=== PATIENT | male | born 1960 | race Caucasian/White ===

== ENCOUNTER → 2017-11-30 | Outpatient (CLI) | payer BC ==
--- NOTE | 2017-11-30 09:55 | FL ---
ESOPHOGRAM. HISTORY: Dysphagia Esophagram was performed per the air contrast technique. The patient swallowed barium and effervesce nt crystals without difficulty or delay. Esophageal peristalsis and motility appear to be within normal limits. There is no evidence for filling defect, mass or diverticulum. Distal esophageal folds are mildly pr ominent. This may reflect esophagitis. Small hiatal hernia reducible. Subsequently single contrast cervical esophagram was performed which fails demonstrate evidence for a spiration penetration or mass. Mild extrinsic mass effect from left to right. IMPRESSION: 1. Mild esophagitis suggested. 2. Small sliding-type hiatal hernia is reducible. 3. Cervical esophagus demonstrates mild [id number] extrinsic mass effect.
--- NOTE | 2017-11-30 12:38 | US ---
EXAMINATION TYPE: US thyroid st tissue head/neck DATE OF EXAM: 11/30/2017 COMPARISON: NONE CLINICAL HISTORY: R13.10 Dysphagia E01.0 Thyroidomegaly. Generalized not feeling well, trouble swallo wing GLAND SIZE: Right Lobe: 6.9 x 2.5 x 2.0 cm Overall Parenchyma: heterogenous Left Lobe: 5.8 x 2.4 x 2.1 cm Overall Parenchyma: heterogeneous Isthmus Thickness: 1.3 cm NODULES RIGHT: # of nodules measured on right: 0 LEFT: # of nodules measured on left: 0 ISTHMUS: # of nodules measured in the isthmus: 0 Bilateral neck scanned, no evidence of lymphadenopathy. Grossly heterogeneous and enlarged thyroid bilaterally. IMPRESSION: Thyromegaly
[2017-11-30 16:24] LABS: Thyroid Peroxidase Antibodies >13000.0 U/mL (0.0-59.9)
== END | disposition home or self-care (01) ==
LOC: RADUSMAIN 08:01
PROVIDERS: ATTEND Otolaryngology
DX: K44.9 Diaphragmatic hernia without obstruction or gangrene (principal); K22.8 Other specified diseases of esophagus; E01.0 Iodine-deficiency related diffuse (endemic) goiter; R53.83 Other fatigue
CPT/HCPCS: 36415; 74220; 76536; 84443; 86376; 86800

== ENCOUNTER 2018-09-23 08:40 | Inpatient (IN) | payer BC ==
[2018-09-23] MEDS ORDERED: SODIUM CHLORIDE 0.9% 1,000 ML IV ONE (08:59)
[2018-09-23 09:01] LABS: Basophils # (A) 0.1 k/uL (0-0.2); Basophils % (A) 1 %; Eosinophils # (A) 0.3 k/uL (0-0.7); Eosinophils % (A) 3 %; HCT 46.1 % (39.0-53.0); Lymphocytes # (A) 2.5 k/uL (1.0-4.8); Lymphocytes % (A) 26 %; MCH 28.8 pg (25.0-35.0); MCHC 32.6 g/dL (31.0-37.0); MCV 88.4 fL (80.0-100.0); Mean Platelet Volume 7.6; Monocytes # (A) 0.7 k/uL (0-1.0); Monocytes % (A) 7 %; Neutrophils # (A) 5.9 k/uL (1.3-7.7); Neutrophils % (A) 61 %; Platelet Count 298 k/uL (150-450); RBC 5.21 m/uL (4.30-5.90); RDW 13.5 % (11.5-15.5); WBC 9.7 k/uL (3.8-10.6)
[2018-09-23] MEDS ORDERED: fentaNYL (PF) 50 MCG/ML 2 ML AMP IVP ONE (09:09)
--- NOTE | 2018-09-23 09:09 | XR ---
EXAMINATION TYPE: XR chest 1V portable DATE OF EXAM: 09/23/2018 COMPARISON: NONE HISTORY: Chest pain TECHNIQUE: Single frontal view of the chest is obtained. FINDINGS: There is no focal air space opacity, pleural effusion, or pneumothorax seen. The cardiac silhouette size is upper limits of normal. The osseous structures are intact. IMPRESSION: Upper limits of normal size of the cardiomediastinal silhouette, otherwise unremarkable exam.
[2018-09-23 09:10] LABS: ALT 42 U/L (21-72); AST 25 U/L (17-59); Albumin 4.2 g/dL (3.5-5.0); Alkaline Phosphatase 85 U/L (38-126); Anion Gap 9 mmol/L; Blood Urea Nitrogen 25 mg/dL (9-20); Calcium 9.7 mg/dL (8.4-10.2); Carbon Dioxide 21 mmol/L (22-30); Chloride 108 mmol/L (98-107); Glucose 174 mg/dL (74-99); Potassium 4.2 mmol/L (3.5-5.1); Sodium 138 mmol/L (137-145); Total Bilirubin 0.7 mg/dL (0.2-1.3); Total Protein 7.2 g/dL (6.3-8.2)
[2018-09-23] MEDS ORDERED: LIDOCAINE 1% INJ 10MG/ML (20 ML MDV) SQ ONE ×2 (09:12→09:20)
[2018-09-23] MEDS ORDERED: MIDAZOLAM 2 MG/2 ML VIAL IVP ONE (09:15)
[2018-09-23 09:17] LABS: Prothrombin Time 11.1 sec (9.0-12.0)
--- NOTE | 2018-09-23 09:21 | CONS ---
CONSULTATION Mr. Goff is a 58-year-old male with known history of hypertension, history of chronic tobacco use, who presented with symptoms of chest discomfort that started today on and off and persistent. He was not feeling well. The discomfort was radiating to his arm and to his back. In view of that, he came into the emergency room and was noted to have ST-segment elevation inferiorly consistent with an inferior wall myocardial infarction. According to the patient, he had no prior cardiac history. His activity level is stable. He has no peripheral edema. No dizziness. No palpitation. No syncope. He denies any history of PND, orthopnea, or peripheral edema. His coronary risk factors are positive for hypertension and hyperlipidemia. He is a nondiabetic. His lipid profile is not available. REVIEW OF SYSTEMS: RESPIRATORY SYSTEM: He denies any recent wheezing or cough. No history of obstructive lung disease. GI SYSTEM: No recent GI bleed. No peptic ulcer disease. SYSTEM: No dysuria or hematuria. NERVOUS SYSTEM: No history of stroke or seizure. SOCIAL HISTORY: He drinks caffeine on a regular basis. Smokes about a pack a day. Social alcohol intake. PHYSICAL EXAMINATION: This is a 58-year-old male, alert, oriented, in no apparent distress. Blood pressure 120/70 with the heart rate in the 60's. HEAD: Normocephalic. EYES: Sclerae anicteric. NECK: Good upstroke. No bruit. No jugular venous distention. LUNGS: With decreased air exchange bilaterally. No wheezes. HEART: Regular rate and rhythm. S1, S2. No S3. No rub or gallop. ABDOMEN: Soft, obese, nontender. Positive bowel sounds. No megaly. EXTREMITIES: No edema. +1 dorsalis pedis. EKG revealed sinus mechanism with a rate of 57, ST-segment elevation in leads II, III, aVF with ST-segment depression in V1 and V2 and one aVL with T-wave inversion. IMPRESSION: 1. Acute inferolateral myocardial infarction. 2. Chronic tobacco use. 3. Hypertension. RECOMMENDATION: I am recommending to proceed with coronary angiography to assess his status and guide his treatment. The rationale behind the procedure as well as the risks and the complications were discussed with the patient who is in full understanding and agreement. Thank you for this consult. We will follow with you. MMODL / IJN: [id number] /
[2018-09-23] MEDS ORDERED: TICAGRELOR 90 MG TAB PO ONE (09:25)
[2018-09-23] MEDS ORDERED: BIVALIRUDIN 250 MG VIAL IV ONE (09:26)
[2018-09-23] MEDS ORDERED: BIVALIRUDIN 250 MG in SODIUM CHLORIDE 0.9% 50 ML IV ONE ×2 (09:26→09:51)
[2018-09-23 09:29] LABS: Partial Thromboplastin Time 21.6 sec (22.0-30.0)
--- NOTE | 2018-09-23 09:33 | ED ---
General Adult HPI - General Chief complaint: Chest Pain Stated complaint: chest pain Source: patient, EMS Mode of arrival: EMS Limitations: no limitations - History of Present Illness Initial comments: Dictation was produced using [employer] dictation software. please excuse any grammatical, word or spelling errors. Chief Complaint: 58-year-old male brought in by EMS for back pain and left upper extremity numbness History of Present Illness: She is a 58-year-old male brought in by EMS for chest pain. Patient states he woke up feeling well this morning. While he was at work began feeling some chest pressure. He didn't think much of it went to work. Patient was doing some form of exertional activity when his symptoms began getting worse. EMS was called. 911 answering service informed them that he may be having a heart attack. They instructed them to give patient aspirin. EMS performed a prehospital EKG showing inferior wall ME with Versed with changes in the high lateral leads. Patient has any history of cardiac disease. Patient is a smoker. Drugs occasionally. Denies any other risk factors. The ROS documented in this emergency department record has been reviewed and confirmed by me. Those systems with pertinent positive or negative responses have been documented in the HPI. All other systems are other negative and/or noncontributory. PHYSICAL EXAM: General Impression: Alert and oriented x3, not in acute distress HEENT: Normocephalic atraumatic, extra-ocular movements intact, pupils equal and reactive to light bilaterally, mucous membranes moist. Cardiovascular: Heart regular rate and rhythm, S1&S2 audible, no murmurs, rubs or gallops Chest: Lungs clear to auscultation bilaterally, no rhonchi, no wheeze, no rales Abdomen: Bowel sounds present, abdomen soft, non-tender, non-distended, no organomegaly Musculoskeletal: Pulses present and equal in all extremities, no peripheral edema Motor: Power 5/5 bilaterally, no focal deficits noted Neurological: CN II-XII grossly intact, no focal motor or sensory deficits noted Skin: Intact with no visualized rashes Psych: Normal affect and mood ED course: 58 yo male with concerns for myocardial infarction. As upon arrival are within acceptable limits. Prehospital EKG was reviewed by myself showing findings concerning for ST segment elevation ME and inferior leads. Repeat EKG was performed here in emergency department for a prehospital EKG findings. Junior Buyer was activated. Patient given 4000 units of heparin. Patient given aspirin. Discussed patient case with Dr. 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 EKG interpretation: Ventricular rate 57, sinus bradycardia,. 166, QS 112, QTc 432. No IN prolongation, no QTC prolongation, EKG consistent with STEMI - Related Data Home Medications Medication Instructions Recorded Confirmed Levothyroxine Sodium [Synthroid] 200 mcg PO QAM 09/23/18 09/23/18 Varenicline Tartrate [Chantix 2 mg PO HS 09/23/18 09/23/18 Continuing Pack] amLODIPine BESYLATE 10 mg PO QAM 09/23/18 09/23/18 Allergies Allergy/AdvReac Type Severity Reaction Status Date / Time No Known Allergies Allergy Unverified 09/23/18 09:00 Review of Systems ROS Statement: Those systems with pertinent positive or pertinent negative responses have been documented in the HPI. ROS Other: All systems not noted in ROS Statement are negative. Past Medical History Past Medical History: Hypertension, Thyroid Disorder History of Any Multi-Drug Resistant Organisms: None Reported Additional Past Surgical History / Comment(s): bicep tendon, broken ankle Past Psychological History: No Psychological Hx Reported Smoking Status: Current every day smoker Past Alcohol Use History: Occasional Past Drug Use History: None Reported General Exam Limitations: no limitations Course Vital Signs 09/23/18 09/23/18 09/23/18 08:43 08:53 09:17 Temperature 97.7 F Pulse Rate 63 59 L Pulse Rate [ 59 L Bilateral Dorsalis Pedis] Respiratory 18 18 Rate Blood Pressure 102/76 141/119 O2 Sat by Pulse 96 Oximetry Procedures - [place] Protocol (Time Out) Patient Identification (2 identifiers required): Arm Band, 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, Procedure, Consent Site Marked: Not Applicable Medical Decision Making - Lab Data Result diagrams: 09/23/18 08:45 09/23/18 08:45 Lab Results 09/23/18 09/23/18 09/23/18 Range/Units 08:45 08:45 08:45 WBC (3.8-10.6) k/uL RBC (4.30-5.90) m/uL Hgb (13.0-17.5) gm/dL Hct (39.0-53.0) % MCV (80.0-100.0) fL MCH (25.0-35.0) pg MCHC (31.0-37.0) g/dL RDW (11.5-15.5) % Plt Count (150-450) k/uL Neutrophils % % Lymphocytes % % Monocytes % % Eosinophils % % Basophils % % Neutrophils # (1.3-7.7) k/uL Lymphocytes # (1.0-4.8) k/uL Monocytes # (0-1.0) k/uL Eosinophils # (0-0.7) k/uL Basophils # (0-0.2) k/uL PT 11.1 (9.0-12.0) sec INR 1.0 (<1.2) APTT 21.6 L (22.0-30.0) sec Sodium 138 (137-145) mmol/L Potassium 4.2 (3.5-5.1) mmol/L Chloride 108 H (98-107) mmol/L Carbon Dioxide 21 L (22-30) mmol/L Anion Gap 9 mmol/L BUN 25 H (9-20) mg/dL Creatinine 0.87 (0.66-1.25) mg/dL Est GFR (CKD-EPI)AfAm >90 (>60 ml/min/1.73 sqM) Est GFR (CKD-EPI)NonAf >90 (>60 ml/min/1.73 sqM) Glucose 174 H (74-99) mg/dL Calcium 9.7 (8.4-10.2) mg/dL Total Bilirubin 0.7 (0.2-1.3) mg/dL AST 25 (17-59) U/L ALT 42 (21-72) U/L Alkaline Phosphatase 85 (38-126) U/L Total Creatine Kinase 209 H (55-170) U/L Total Protein 7.2 (6.3-8.2) g/dL Albumin 4.2 (3.5-5.0) g/dL 09/23/18 Range/Units 08:45 WBC 9.7 (3.8-10.6) k/uL RBC 5.21 (4.30-5.90) m/uL Hgb 15.0 (13.0-17.5) gm/dL Hct 46.1 (39.0-53.0) % MCV 88.4 (80.0-100.0) fL MCH 28.8 (25.0-35.0) pg MCHC 32.6 (31.0-37.0) g/dL RDW 13.5 (11.5-15.5) % Plt Count 298 (150-450) k/uL Neutrophils % 61 % Lymphocytes % 26 % Monocytes % 7 % Eosinophils % 3 % Basophils % 1 % Neutrophils # 5.9 (1.3-7.7) k/uL Lymphocytes # 2.5 (1.0-4.8) k/uL Monocytes # 0.7 (0-1.0) k/uL Eosinophils # 0.3 (0-0.7) k/uL Basophils # 0.1 (0-0.2) k/uL PT (9.0-12.0) sec INR (<1.2) APTT (22.0-30.0) sec Sodium (137-145) mmol/L Potassium (3.5-5.1) mmol/L Chloride (98-107) mmol/L Carbon Dioxide (22-30) mmol/L Anion Gap mmol/L BUN (9-20) mg/dL Creatinine (0.66-1.25) mg/dL Est GFR (CKD-EPI)AfAm (>60 ml/min/1.73 sqM) Est GFR (CKD-EPI)NonAf (>60 ml/min/1.73 sqM) Glucose (74-99) mg/dL Calcium (8.4-10.2) mg/dL Total Bilirubin (0.2-1.3) mg/dL AST (17-59) U/L ALT (21-72) U/L Alkaline Phosphatase (38-126) U/L Total Creatine Kinase (55-170) U/L Total Protein (6.3-8.2) g/dL Albumin (3.5-5.0) g/dL Disposition Clinical Impression: ST elevation myocardial infarction (STEMI) Disposition: ADMITTED IP TO THIS HOSP Condition: Critical Referrals: Cheko Knox MD [Primary Care Provider] - 1-2 days Decision Time: 09:33
[2018-09-23 09:34] LABS: Creatine Kinase MB 1.7 ng/mL (0.0-2.4)
[2018-09-23] MEDS ORDERED: IOPAMIDOL-370 125ML BTL INJ ONE (09:46)
[2018-09-23 09:47] LABS: Troponin I 0.092 ng/mL (0.000-0.034)
[2018-09-23] MEDS ORDERED: METOPROLOL TARTRATE 5 MG/5 ML VIAL IVP ONE (09:51)
[2018-09-23] MEDS ORDERED: IOPAMIDOL-370 50ML BTL INJ ONE ×2 (10:01→10:02)
[2018-09-23] MEDS ORDERED: NALOXONE 0.4 MG/ML 1 ML VIAL IV PRN (10:12)
[2018-09-23] MEDS ORDERED: NITROGLYCERIN SL TABS 0.4 MG TAB SUBLINGUAL PRN (10:20)
[2018-09-23] MEDS ORDERED: ZOLPIDEM 5 MG TAB PO PRN (10:20)
[2018-09-23] MEDS ORDERED: MAG HYDROX/AL HYDROX/SIMETH 30 ML CUP PO PRN (10:20)
[2018-09-23] MEDS ORDERED: RX INFO: IV CONTRAST WAS GIVEN 1 EACH MISC MISCELLANE PRN (10:20)
[2018-09-23] MEDS ORDERED: ATROPINE SULFATE 0.1 MG/ML 10ML SYRINGE IV PRN (10:20)
[2018-09-23 10:26] LABS: Glucose,Whole Blood 136 mg/dL (75-99)
[2018-09-23] MEDS ORDERED: SODIUM CHLORIDE 0.9% 1,000 ML IV SCH (10:30)
--- NOTE | 2018-09-23 10:39 | CC ---
CARDIAC CATHETERIZATION REPORT Mr. Goff is a 58-year-old male with a known history of hypertension, chronic tobacco use, who presented with symptoms of chest discomfort and evidence of acute inferior wall myocardial infarction. In view of that, recommendation made regarding cardiac catheterization. The procedures, risks and complication were discussed with the patient who is in full understanding and agreement. 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 Using Xylocaine anesthesia, attempts to cannulate the radial artery were unsuccessful because of a vasospastic response at that time. Using Xylocaine anesthesia and Seldinger technique, a 6-Chinese sheath was introduced in the right femoral artery. Selective right coronary angiography was performed using 6-Chinese FR4 guiding catheter after obtaining images and performing stenting of the right coronary artery, images of the left coronary system was used using 6-Chinese 4 bend left Georgina catheter. Images of the coronary arteries were obtained. Following that, a 6-Chinese tight pigtail catheter was introduced in the left ventricle and a 30 degree DEVLIN view of the left ventricle was obtained. Following that, catheter and sheath were removed. Hemostasis was obtained with deployment of Angio-Seal. There was no immediate complication. Patient is returned to his room in stable condition. FINDINGS: LEFT MAIN: This is a short-size vessel bifurcating into left circumflex, left anterior descending artery. Left main coronary artery has no evidence of obstructive coronary artery disease. LEFT ANTERIOR DESCENDING ARTERY: This vessel gives rise to diagonal branch, following the diagonal branch the LAD tapers down, does not reach the apex. The LAD after the diagonal branch has a 40% plaque. The rest of the vessel has mild intimal disease without any evidence of high-grade stenosis. LEFT CIRCUMFLEX: This is a nondominant vessel, large in caliber giving rise to 2 obtuse marginal branch. The left circumflex first obtuse marginal branch has a 20% to 30% plaque. The rest of the vessel has no high-grade stenosis. RIGHT CORONARY ARTERY: This is a large ectatic vessel, totally occluded in the mid distal segment with no antegrade flow. LEFT VENTRICULOGRAM: Left ventriculogram was performed in 30 degree DEVLIN view and revealed mild inferior wall hypokinesis. There was no significant mitral regurgitation. Ejection fraction 45% to 50%. HEMODYNAMICS: There was no gradient across the aortic valve. The left ventricle end-diastolic pressure was 24-26 mmHg. CONCLUSION: 1. Totally occluded right coronary artery in the mid distal segment. 2. Mild to moderate disease in the circumflex and the LAD. 3. Mildly impaired left ventricular systolic function. RECOMMENDATION: In view of finding anatomy, I recommend proceeding with angioplasty and stenting of the right coronary artery. The procedures, risks and complication were discussed with the patient who is in full understanding and agreement. MMODL / IJN: [id number] /
--- NOTE | 2018-09-23 10:42 | PTCA ---
PERCUTANEOUSTRANS CORORONARY ANGIOGRAPHY Mr. Goff is a 58-year-old male with known history of hypertension and chronic tobacco use, who presented with evidence of an acute inferior myocardial infarction underwent cardiac catheterization, was found to have totally occluded mid distal right coronary artery. In view of that, recommendation was made regarding angioplasty and stenting, the procedure as well as the risks and complications were discussed with the patient who is in full understanding and agreement. PROCEDURE: Using the 6-Salvadorean FR4 guiding catheter after cannulating the right coronary ostium a 0.014 balanced medium weight J-wire was advanced across the lesion positioned distally then a 3.0 x 12 mm Trek balloon was advanced and 2 inflations at maximum of 10 atmospheres were done. Following that, the balloon was removed and a 4.0 x 33 mm Xience Tana stent was deployed, postdilated 14 atmospheres. Following that, the balloon was removed and a 4.0 x 12 mm Xience Tana stent was deployed proximal to the first one, postdilated 16 atmospheres. Following that, the balloon was removed and a 5.0 x 12 mm NC Trek balloon was advanced and multiple inflations with maximum of 12 atmospheres was done. After the last inflation, after appropriate wait, the balloon and the guidewire withdrawn back in the guiding catheter. Images were obtained, repeated. Those images reveal stable successful stenting. At that point, the guiding catheter, the balloon and the guidewire were removed. Images of the left coronary system and left ventriculogram was performed. Following that, catheter and sheaths were removed. Hemostasis was obtained with deployment of an Angio-Seal. There was no immediate complication. The patient was returned to his room in stable condition. Of note, the patient had resolution of chest discomfort and the end of the procedure with was resolution of his ST-segment elevation. He received Angiomax per protocol as well as oral loading dose of Brilinta. RESULTS: Successful stenting of the distal right coronary artery in a long segment with reduction of stenosis from 100% to less than 5%. RECOMMENDATION: Patient will be continued on aspirin, Brilinta, beta kayli, DHEERAJ inhibitor and statin. The importance of dual antiplatelet treatment were discussed with the patient and his family and they are in full understanding and agreement. Duration of procedure is 52 minutes. MMODL / IJN: [id number] / MTDD
--- NOTE | 2018-09-23 10:48 | LTR ---
September 23, 2018 Re: Melvin Goff Dear Dr. Knox: I had the opportunity to perform coronary angiography and coronary angioplasty and stenting on Mr. Goff at [facility] on the 23 of September and a full copy of the procedure note will be forwarded to you. In brief, he was found to have a totally occluded right coronary artery and underwent successful stenting of that vessel using drug-eluting stent. I am hopeful that this procedure will stabilize his status. Thank you again for allowing me the opportunity to participate in his care. Please feel free to call for any questions. Sincerely yours, MD ROB DollL / ZINAN: [id number] /
[2018-09-23 10:59] LABS: Cholesterol 251 mg/dL (<200); HDL Cholesterol 40 mg/dL (40-60); LDL Cholesterol,Calculated 175 mg/dL (0-99); Triglycerides 181 mg/dL (<150)
--- NOTE | 2018-09-23 12:30 | P.HPIM ---
History of Present Illness This is a pleasant 58 years old male with past medical history of hypertension and hypothyroidism with thyroid nodules he follows up with Dr. erazo , the pay station department manager. He is a patient of Dr. Bright that he does not follow up with so frequently and does supposed to be. Presents because of acute back pain. Patient has some nasal congestion overnight, next a morning during work he has a brief episode of acute back pain between the shoulder blades that's when away in 1-2 minutes with rest. 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 In the hospital patient was found to have ST elevation myocardial infarction in the inferior leads with sinus bradycardia. He was taken urgently to the cardiac Developmental Behavioral Physician and he underwent coronary angioplasty with stenting of the distal right coronary artery. Patient seen in the intensive care unit after the procedure he was lying in bed comfortable with very minimal back pain. He was started on aspirin, Brillinta, beta kayli , DHEERAJ inhibitor and statin Also patient he follows up with Dr. Beltran for his hypothyroidism and thyroid nodule, his on levothyroxine 200 g daily. His next appointment with Dr. Erazo is in coming November and he last saw him in September 05 of this year Review of Systems CONSTITUTIONAL: No fever, no malaise, no fatigue. HEENT: No recent visual problems or hearing problems. Denied any sore throat. CARDIOVASCULAR: No orthopnea, PND, no palpitations, no syncope. PULMONARY: No shortness of breath, no cough, no hemoptysis. GASTROINTESTINAL: No diarrhea, no nausea, no vomiting, no abdominal pain. Normoactive bowel sounds. NEUROLOGICAL: No headaches, no weakness, no numbness. HEMATOLOGICAL: Denies any bleeding or petechiae. GENITOURINARY: Denies any burning micturition, frequency, or urgency. MUSCULOSKELETAL/RHEUMATOLOGICAL: Denies any joint pain, swelling, or any muscle pain. ENDOCRINE: Denies any polyuria or polydipsia. Past Medical History Past Medical History: Hypertension, Myocardial Infarction (MO), Thyroid Disorder Additional Past Medical History / Comment(s): MO 09/23/18 with heart cath and stent x2 to RCA Last Myocardial Infarction Date:: 2/4/19 History of Any Multi-Drug Resistant Organisms: None Reported Additional Past Surgical History / Comment(s): bicep tendon, broken ankle Past Anesthesia/Blood Transfusion Reactions: No Reported Reaction Past Psychological History: Anxiety Additional Psychological History / Comment(s): 2010 anxiety with divorce, pt states no anxiety since Smoking Status: Current every day smoker Past Alcohol Use History: Occasional Past Drug Use History: None Reported - Past Family History Father Family Medical History: Diabetes Mellitus Additional Family Medical History / Comment(s): related to asbestos exposure causing mesothelioma Medications and Allergies Home Medications Medication Instructions Recorded Confirmed Type Levothyroxine Sodium [Synthroid] 200 mcg PO QAM 09/23/18 09/23/18 History Varenicline Tartrate [Chantix 2 mg PO HS 09/23/18 09/23/18 History Continuing Pack] amLODIPine BESYLATE 10 mg PO QAM 09/23/18 09/23/18 History Allergies Allergy/AdvReac Type Severity Reaction Status Date / Time No Known Allergies Allergy Unverified 09/23/18 09:00 Physical Exam Vitals: Vital Signs Temp Pulse Pulse Resp BP Pulse Ox 09/23/18 12:00 98.1 F 65 14 172/92 96 09/23/18 11:00 66 16 146/94 96 09/23/18 10:30 97.8 F 57 L 16 146/94 96 09/23/18 10:26 63 13 09/23/18 09:17 59 L 09/23/18 09:00 141/119 09/23/18 08:53 59 L 18 141/119 96 09/23/18 08:50 102/76 97 09/23/18 08:47 102/76 09/23/18 08:43 97.7 F 63 18 102/76 Intake and Output 09/22/18 09/23/18 09/23/18 22:59 06:59 14:59 Intake Total 540 Output Total 350 Balance 190 Intake: IV 340 Intake, IV Titration 200 Amount Sodium Chloride 0.9% 1, 200 000 ml @ 100 mls/hr IV . Q10H [facility] Rx#:[id number] Output: Urine 350 Other: Weight 113.398 kg GENERAL: The patient is alert and oriented x3, not in any acute distress. Well developed, well nourished. HEENT: Pupils are round and equally reacting to light. EOMI. No scleral icterus. No conjunctival pallor. Normocephalic, atraumatic. No pharyngeal erythema. No thyromegaly. CARDIOVASCULAR: S1 and S2 present. No murmurs, rubs, or gallops. PULMONARY: Chest is clear to auscultation, no wheezing or crackles. ABDOMEN: Soft, nontender, nondistended, normoactive bowel sounds. No palpable organomegaly. MUSCULOSKELETAL: No joint swelling or deformity. EXTREMITIES: No cyanosis, clubbing, or pedal edema. NEUROLOGICAL: Gross neurological examination did not reveal any focal deficits. SKIN: No rashes. Results CBC & Chem 7: 09/23/18 08:45 09/23/18 08:45 Labs: Abnormal Lab Results - Last 24 Hours (Table) 09/23/18 09/23/18 09/23/18 Range/Units 08:45 08:45 08:45 APTT 21.6 L (22.0-30.0) sec Chloride 108 H (98-107) mmol/L Carbon Dioxide 21 L (22-30) mmol/L BUN 25 H (9-20) mg/dL Glucose 174 H (74-99) mg/dL POC Glucose (mg/dL) (75-99) mg/dL Total Creatine Kinase 209 H (55-170) U/L Troponin I 0.092 H* (0.000-0.034) ng/mL Triglycerides (<150) mg/dL Cholesterol (<200) mg/dL LDL Cholesterol, Calc (0-99) mg/dL 09/23/18 09/23/18 Range/Units 08:45 10:24 APTT (22.0-30.0) sec Chloride (98-107) mmol/L Carbon Dioxide (22-30) mmol/L BUN (9-20) mg/dL Glucose (74-99) mg/dL POC Glucose (mg/dL) 136 H (75-99) mg/dL Total Creatine Kinase (55-170) U/L Troponin I (0.000-0.034) ng/mL Triglycerides 181 H (<150) mg/dL Cholesterol 251 H (<200) mg/dL LDL Cholesterol, Calc 175 H (0-99) mg/dL Thrombosis Risk Factor Assmnt - Choose All That Apply Any of the Below Risk Factors Present?: Yes Each Factor Represents 1 point: Acute MO, Age 41-60 years, Obesity (BMI >25) Other Risk Factors: Yes Each Risk Factor Represents 2 Points: Central venous access Other congenital or acquired thrombophilia - If yes, enter type in comment: No Thrombosis Risk Factor Assessment Total Risk Factor Score: 5 Thrombosis Risk Factor Assessment Level: High Risk Assessment and Plan Assessment: Acute inferior STEMI Status post stenting of his distal right coronary artery Essential hypertension Hypothyroidism Current smoker, quit recently. Obesity Plan: This is a pleasant 58 years old male who presents because of inferior MO, his status post stenting of RCA. Cardiology are following the case, continue with aspirin, Brillinta, beta kayli, DHEERAJ inhibitor and statin continue with levothyroxine. Nicotine patch is offered with the counseling to quit smoking. Labs and medication were reviewed.. Continue same treatment. Continue with symptomatic treatment. Resume home medication. Monitor lytes and vitals. DVT and GI prophylaxis. Further recommendations of the clinical course of the patient Prognosis is guarded
[2018-09-23 13:38] VITALS: BMI 35.9
[2018-09-23] MEDS: FAMOTIDINE 20 MG TAB PO SCH (20:14)
[2018-09-23] MEDS: LISINOPRIL 5 MG TAB PO SCH (20:14)
[2018-09-23] MEDS: ATORVASTATIN 80 MG TAB PO SCH (20:14)
[2018-09-23] MEDS: METOPROLOL TARTRATE 25 MG TAB PO SCH (20:14)
[2018-09-24 05:39] LABS: Basophils % (A) 0 %; Eosinophils # (A) 0.2 k/uL (0-0.7); Eosinophils % (A) 1 %; HCT 46.3 % (39.0-53.0); HGB 15.1 gm/dL (13.0-17.5); Lymphocytes # (A) 1.9 k/uL (1.0-4.8); Lymphocytes % (A) 16 %; MCH 29.5 pg (25.0-35.0); MCHC 32.5 g/dL (31.0-37.0); MCV 90.8 fL (80.0-100.0); Mean Platelet Volume 7.3; Monocytes # (A) 0.9 k/uL (0-1.0); Monocytes % (A) 7 %; Neutrophils # (A) 8.8 k/uL (1.3-7.7); Neutrophils % (A) 73 %; Platelet Count 265 k/uL (150-450); RBC 5.11 m/uL (4.30-5.90); RDW 13.5 % (11.5-15.5)
[2018-09-24 05:47] LABS: Anion Gap 8 mmol/L; Blood Urea Nitrogen 15 mg/dL (9-20); Calcium 9.8 mg/dL (8.4-10.2); Carbon Dioxide 23 mmol/L (22-30); Chloride 107 mmol/L (98-107); Glucose 121 mg/dL (74-99); Phosphorus 3.7 mg/dL (2.5-4.5); Potassium 4.3 mmol/L (3.5-5.1); Sodium 138 mmol/L (137-145)
[2018-09-24] MEDS: LEVOTHYROXINE 100 MCG TAB PO SCH (06:17)
--- NOTE | 2018-09-24 08:11 | XR ---
EXAMINATION TYPE: XR chest 1V DATE OF EXAM: 09/24/2018 HISTORY: Shortness of breath. COMPARISON: 09/23/2018 TECHNIQUE: Single view of the chest is submitted. FINDINGS: Demonstrated are scattered senescent parenchymal change. There is no evidence for focal infiltrate. The heart is stable. Hilar and mediastinal structures are within normal limits. Degenerative changes are seen of the dorsal spine. IMPRESSION: 1. Chronic changes without evidence for acute pulmonary disease.
--- NOTE | 2018-09-24 08:31 | PN ---
PROGRESS NOTE Mr. Goff is 58-year-old male who presented with ST-segment elevation myocardial infarction in the inferior leads, underwent cardiac catheterization and stenting of his right coronary artery. He is doing well this morning. He is denying any symptoms of chest pain. He continues to be in sinus mechanism. He denies any dizziness or palpitation. He continues be on aspirin once a day, Brilinta 90 mg twice a day, Lipitor 80 mg daily, Zestril 5 mg twice a day and metoprolol tartrate 25 mg twice a day. PHYSICAL EXAMINATION: Blood pressure 127/9 with a heart rate in the 60s. LUNGS: Clear. HEART: Regular rate and rhythm, S1, S2. No S3 with systolic ejection murmur heard at the base, no diastolic murmur. ABDOMEN: Soft, nontender. EXTREMITIES: No edema right groin reveals no hematoma. LAB DATA: Revealed BUN creatinine 15 and 0.73, potassium 4.3. Peak troponin 25. His LDL is 175, hemoglobin 15.1. IMPRESSION: 1. Status post inferior myocardial infarction with stenting of the right coronary artery. 2. Hypertension. 3. History of smoking. 4. Hyperlipidemia. RECOMMENDATION: We will obtain echocardiogram with Doppler today. Increase his level of activity. Transfer him to telemetry floor and depending on his progress, further recommendation will be made. MMODL / ZINAN: [id number] /
[2018-09-24] MEDS: TICAGRELOR 90 MG TAB PO SCH ×2 (08:35→21:23)
[2018-09-24] MEDS: ASPIRIN 81 MG PO SCH (08:35)
[2018-09-24] MEDS: METOPROLOL TARTRATE 25 MG TAB PO SCH ×2 (08:35→21:24)
[2018-09-24] MEDS: FAMOTIDINE 20 MG TAB PO SCH ×2 (08:36→21:24)
[2018-09-24] MEDS: LISINOPRIL 5 MG TAB PO SCH ×2 (08:36→21:25)
--- NOTE | 2018-09-24 11:53 | ECHOF ---
Referral Reason:mi MEASUREMENTS -------- HEIGHT: 180.3 cm WEIGHT: 113.4 kg BP: IVSd: 1.4 cm (0.6 - 1.1) LVIDd: 4.7 cm (3.9 - 5.3) LVPWd: 1.4 cm (0.6 - 1.1) IVSs: 1.5 cm LVIDs: 2.7 cm LVPWs: 2.1 cm LAESV Index (A-L): 27.95 ml/m Ao Diam: 3.2 cm (2.0 - 3.7) AV Cusp: 2.1 cm (1.5 - 2.6) LA Diam: 2.5 cm (2.7 - 3.8) MV EXCURSION: 23.080 mm (> 18.000) MV EF SLOPE: 96 mm/s (70 - 150) EPSS: 0.5 cm MV E Cody: 0.85 m/s MV DecT: 269 ms MV A Cody: 0.91 m/s MV E/A Ratio: 0.94 RAP: 5.00 mmHg RVSP: 14.52 mmHg FINDINGS -------- Sinus rhythm. This was a technically difficult study with suboptimal views. The left ventricular size is normal. There is mild concentric left ventricular hypertrophy. Overa ll left ventricular systolic function is mild-moderately impaired with, an EF between 40 - 45 %. Ba anibal inferior LV wall motion is hypokinetic. Basal inferoseptal LV wall motion is hypokinetic. M id inferior LV wall motion is hypokinetic. Mid inferoseptal LV wall motion is hypokinetic. Apic al inferior LV wall motion is hypokinetic. The right ventricle is normal in size and function. Normal LA size by volume 22+/-6 ml/m2. The right atrium is normal in size. Lumason used The aortic valve is trileaflet and appears structurally normal. Mild mitral regurgitation is present. Mild tricuspid regurgitation present. The right ventricular systolic pressure, as measured by Doppl er, is 14.52mmHg. Pulmonic valve appears structurally normal. The aortic root size is normal. IVC Not well visulized. The pericardium is normal. CONCLUSIONS -------- 1. Sinus rhythm. 2. This was a technically difficult study with suboptimal views. 3. The left ventricular size is normal. 4. There is mild concentric left ventricular hypertrophy. 5. Basal inferior LV wall motion is hypokinetic. 6. Basal inferoseptal LV wall motion is hypokinetic. 7. Mid inferior LV wall motion is hypokinetic. 8. Mid inferoseptal LV wall motion is hypokinetic. 9. Apical inferior LV wall motion is hypokinetic. 10. The right ventricle is normal in size and function. 11. Normal LA size by volume 22+/-6 ml/m2. 12. The right atrium is normal in size. 13. Lumason used 14. The aortic valve is trileaflet and appears structurally normal. 15. Mild mitral regurgitation is present. 16. Mild tricuspid regurgitation present. 17. The right ventricular systolic pressure, as measured by Doppler, is 14.52mmHg. 18. Pulmonic valve appears structurally normal. 19. The aortic root size is normal. 20. IVC Not well visulized. 21. The pericardium is normal. RESIDENTIAL TREATMENT COUNSELOR: Janeen Murillo RDCS
[2018-09-24] MEDS: ATORVASTATIN 80 MG TAB PO SCH (21:25)
--- NOTE | 2018-09-25 00:21 | P.PN ---
Subjective Progress Note Date: 09/24/18 Principal diagnosis: Acute STEMI This is a pleasant 58 years old male with past medical history of hypertension and hypothyroidism with thyroid nodules he follows up with Dr. marte , the geriatric social worker. He is a patient of Dr. Bright that he does not follow up with so frequently and does supposed to be. Presents because of acute back pain. Patient has some nasal congestion overnight, next a morning during work he has a brief episode of acute back pain between the shoulder blades that's when away in 1-2 minutes with rest. 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 In the hospital patient was found to have ST elevation myocardial infarction in the inferior leads with sinus bradycardia. He was taken urgently to the cardiac Electric Sign Assembler and he underwent coronary angioplasty with stenting of the distal right coronary artery. Patient seen in the intensive care unit after the procedure he was lying in bed comfortable with very minimal back pain. He was started on aspirin, Brillinta, beta kayli , DHEERAJ inhibitor and statin Also patient he follows up with Dr. Beltran for his hypothyroidism and thyroid nodule, his on levothyroxine 200 g daily. His next appointment with Dr. Marte is in coming November and he last saw him in September 05 of this year 09/24/2018 Patient denied any complaints of chest pain or shortness of breath. 2-D echocardiogram was done. No nausea vomiting or abdominal pain. No complains of dizziness or lightheadedness. Patient is being transferred to telemetry unit today. Current medications reviewed. Objective - Vital Signs Vital signs: Vital Signs Temp 98.2 F 09/24/18 16:00 Pulse 62 09/24/18 16:00 Resp 16 09/24/18 16:00 BP 94/66 09/24/18 16:00 Pulse Ox 93 L 09/24/18 16:00 Intake & Output 09/23/18 09/24/18 09/24/18 18:59 06:59 18:59 Intake Total 1140 300 190 Output Total 950 2300 1355 Balance 190 -1999 -1165 Weight 113.398 kg 112.8 kg Intake: IV 340 300 190 .9 20 ml 190 Sodium Chloride 0.9% 1, 300 000 ml @ 100 mls/hr IV . Q10H [facility] Rx#:[id number] Intake, IV Titration 800 Amount Sodium Chloride 0.9% 1, 800 000 ml @ 100 mls/hr IV . Q10H [facility] Rx#:[id number] Output: Urine 950 2300 1355 Other: Voiding Method Urinal Urinal Urinal # Voids 0 - Exam PHYSICAL EXAMINATION: Patient is lying in the bed comfortably, no acute distress, awake alert and oriented.. HEENT: Normocephalic. Neck is supple. Pupils reactive. Nostrils clear. Oral cavity is moist. Ears reveal no drainage. Neck reveals no JVD, carotid bruits, or thyromegaly. CHEST EXAMINATION: Trachea is central. Symmetrical expansion. Lung bernard clear to auscultation and percussion. CARDIAC: Normal S1, S2 with no gallops. No murmurs ABDOMEN: Soft. Bowel sounds normal. No organomegaly. No abdominal bruits. Extremities: reveal no edema. No clubbing or cyanosis Neurologically awake, alert, oriented x3 with well-coordinated movements. No focal deficits noted Skin: No rash or skin lesions. Psychiatric: Coperative. Nonsuicidal Musculoskeletal: No joint swelling or deformity. Normal range of motion. - Labs CBC & Chem 7: 09/24/18 05:11 09/24/18 05:11 Labs: Abnormal Lab Results - Last 24 Hours (Table) 09/23/18 09/24/18 09/24/18 Range/Units 19:59 05:11 05:11 WBC 12.0 H (3.8-10.6) k/uL Neutrophils # 8.8 H (1.3-7.7) k/uL Glucose 121 H (74-99) mg/dL Troponin I 25.100 H* (0.000-0.034) ng/mL 09/24/18 Range/Units 05:11 WBC (3.8-10.6) k/uL Neutrophils # (1.3-7.7) k/uL Glucose (74-99) mg/dL Troponin I 21.000 H* (0.000-0.034) ng/mL Assessment and Plan Assessment: Acute inferior STEMI Status post stenting of his distal right coronary artery Essential hypertension Hypothyroidism Current smoker, quit recently. Obesity Plan: This is a pleasant 58 years old male who presents because of inferior NE, his status post stenting of RCA. Cardiology are following the case, continue with aspirin, Brillinta, beta kayli, DHEERAJ inhibitor and statin continue with levothyroxine. Nicotine patch is offered with the counseling to quit smoking. Labs and medication were reviewed.. Continue same treatment. Continue with symptomatic treatment. Resume home medication. Monitor lytes and vitals. DVT and GI prophylaxis. Further recommendations of the clinical course of the patient Time with Patient: Greater than 30
[2018-09-25 05:55] LABS: Anion Gap 9 mmol/L; Blood Urea Nitrogen 22 mg/dL (9-20); Calcium 9.9 mg/dL (8.4-10.2); Carbon Dioxide 25 mmol/L (22-30); Chloride 107 mmol/L (98-107); Glucose 111 mg/dL (74-99); Magnesium 2.1 mg/dL (1.6-2.3); Potassium 4.5 mmol/L (3.5-5.1); Sodium 141 mmol/L (137-145)
[2018-09-25] MEDS: LEVOTHYROXINE 100 MCG TAB PO SCH (06:17)
[2018-09-25] MEDS: ASPIRIN 81 MG PO SCH (07:58)
[2018-09-25] MEDS: TICAGRELOR 90 MG TAB PO SCH ×2 (07:58→20:36)
[2018-09-25] MEDS: LISINOPRIL 5 MG TAB PO SCH ×2 (07:59→20:36)
[2018-09-25] MEDS: METOPROLOL TARTRATE 25 MG TAB PO SCH ×2 (07:59→20:37)
[2018-09-25] MEDS: FAMOTIDINE 20 MG TAB PO SCH ×2 (08:00→20:36)
[2018-09-25 14:12] VITALS: RESP 16
--- NOTE | 2018-09-25 14:37 | P.PN ---
Subjective Progress Note Date: 09/25/18 This is a 58-year-old gentleman with known history of hypertension, chronic tobacco use who presented to the hospital with an acute inferior wall myocardial infarction. He underwent angioplasty with stent placement of the right coronary artery. Patient was seen and examined this morning, denied any chest pain or difficulty in breathing. He's been up ambulating in the hallway without any difficulty. Echocardiogram with Doppler study revealed an ejection fraction of 40-45%. Hemodynamically he is stable. Objective - Vital Signs Vital signs: Vital Signs Temp 97.5 F L 09/25/18 12:00 Pulse 54 L 09/25/18 12:00 Resp 16 09/25/18 12:00 BP 105/59 09/25/18 12:00 Pulse Ox 96 09/25/18 12:00 Intake & Output 09/24/18 09/25/18 09/25/18 18:59 06:59 18:59 Intake Total 250 500 230 Output Total 1355 0 0 Balance -1105 500 230 Weight 113.8 kg Intake: IV 250 20 .9 20 ml 250 20 Oral 480 230 Output: Urine 1355 0 0 Other: Voiding Method Urinal Toilet Urinal # Voids 1 1 1 # Bowel Movements 1 - Exam PHYSICAL EXAMINATION: GENERAL: 58-year-old gentleman in no acute distress at the time of my examination HEENT: Head is atraumatic, normocephalic. Pupils equal, round. Sclera anicteric. Conjunctiva are clear. Mucous membranes of the mouth are moist. Neck is supple. There is no elevated jugular venous pressure. No carotid bruit is heard. HEART EXAMINATION: Heart S1, S2 normal. No murmur or gallop heard. CHEST EXAMINATION: Lungs are clear to auscultation and precussion. No chest wall tenderness is noted on palpation or with deep breathing. ABDOMEN: Soft, nontender. Bowel sounds are heard. No organomegaly noted. EXTREMITIES: 2+ peripheral pulses with no evidence of peripheral edema and no calf tenderness noted. NEUROLOGIC patient is awake, alert and oriented 3 . . - Labs CBC & Chem 7: 09/24/18 05:11 09/25/18 05:15 Labs: Abnormal Lab Results - Last 24 Hours (Table) 09/25/18 Range/Units 05:15 BUN 22 H (9-20) mg/dL Glucose 111 H (74-99) mg/dL Assessment and Plan Plan: Assessment and plan #1 inferior wall myocardial infarction, status post angioplasty and stenting of the right coronary artery #2 hypertension #3 nicotine dependence #4 hyperlipidemia Plan From cardiology's perspective, patient has been encouraged to be up ambulating in the hallway. Plan for possible discharge home in 24 hours if he remains stable. DNP note has been reviewed, I agree with a documented findings and plan of care. Patient was seen and examined.
[2018-09-25] MEDS: ATORVASTATIN 80 MG TAB PO SCH (20:36)
--- NOTE | 2018-09-25 22:32 | P.PN ---
Subjective Progress Note Date: 09/25/18 Principal diagnosis: Acute STEMI This is a pleasant 58 years old male with past medical history of hypertension and hypothyroidism with thyroid nodules he follows up with Dr. marte , the family protection specialist. He is a patient of Dr. Bright that he does not follow up with so frequently and does supposed to be. Presents because of acute back pain. Patient has some nasal congestion overnight, next a morning during work he has a brief episode of acute back pain between the shoulder blades that's when away in 1-2 minutes with rest. 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 In the hospital patient was found to have ST elevation myocardial infarction in the inferior leads with sinus bradycardia. He was taken urgently to the cardiac Cement Mason and he underwent coronary angioplasty with stenting of the distal right coronary artery. Patient seen in the intensive care unit after the procedure he was lying in bed comfortable with very minimal back pain. He was started on aspirin, Brillinta, beta kayli , DHEERAJ inhibitor and statin Also patient he follows up with Dr. Beltran for his hypothyroidism and thyroid nodule, his on levothyroxine 200 g daily. His next appointment with Dr. Marte is in coming November and he last saw him in September 05 of this year 09/24/2018 Patient denied any complaints of chest pain or shortness of breath. 2-D echocardiogram was done. No nausea vomiting or abdominal pain. No complains of dizziness or lightheadedness. Patient is being transferred to telemetry unit today. 09/25/2018 Patient denied any complaints of chest pain or shortness of breath. No leg swelling. Able to ambulate in the hallway. 2-D echocardiogram showed ejection fraction 40-45%. Patient is being continued on current management and cardiology is following. Anticipate discharged tomorrow. Current medications reviewed. Objective - Vital Signs Vital signs: Vital Signs Temp 98.2 F 09/25/18 20:00 Pulse 58 L 09/25/18 20:00 Resp 16 09/25/18 20:00 BP 121/78 09/25/18 20:00 Pulse Ox 95 09/25/18 20:00 Intake & Output 09/25/18 09/25/18 09/26/18 06:59 18:59 06:59 Intake Total 500 230 Output Total 0 0 Balance 500 230 Weight 113.8 kg Intake: IV 20 .9 20 ml 20 Oral 480 230 Output: Urine 0 0 Other: Voiding Method Toilet Toilet Urinal Urinal # Voids 1 1 1 - Exam PHYSICAL EXAMINATION: Patient is lying in the bed comfortably, no acute distress, awake alert and oriented.. HEENT: Normocephalic. Neck is supple. Pupils reactive. Nostrils clear. Oral cavity is moist. Ears reveal no drainage. Neck reveals no JVD, carotid bruits, or thyromegaly. CHEST EXAMINATION: Trachea is central. Symmetrical expansion. Lung bernard clear to auscultation and percussion. CARDIAC: Normal S1, S2 with no gallops. No murmurs ABDOMEN: Soft. Bowel sounds normal. No organomegaly. No abdominal bruits. Extremities: reveal no edema. No clubbing or cyanosis Neurologically awake, alert, oriented x3 with well-coordinated movements. No focal deficits noted Skin: No rash or skin lesions. Psychiatric: Coperative. Nonsuicidal Musculoskeletal: No joint swelling or deformity. Normal range of motion. - Labs CBC & Chem 7: 09/24/18 05:11 09/25/18 05:15 Labs: Abnormal Lab Results - Last 24 Hours (Table) 09/25/18 Range/Units 05:15 BUN 22 H (9-20) mg/dL Glucose 111 H (74-99) mg/dL Assessment and Plan Assessment: Acute inferior STEMI Status post stenting of his distal right coronary artery Essential hypertension Hypothyroidism Current smoker, quit recently. Obesity Plan: This is a pleasant 58 years old male who presents because of inferior GA, status post stenting of RCA. Cardiology are following the case, continue with aspirin, Brillinta, beta kayli, DHEERAJ inhibitor and statin continue with levothyroxine. Nicotine patch is offered with the counseling to quit smoking. Labs and medication were reviewed.. Continue same treatment. Continue with symptomatic treatment. Resume home medication. Monitor lytes and vitals. DVT and GI prophylaxis. Further recommendations of the clinical course of the patient
[2018-09-26] MEDS: LEVOTHYROXINE 100 MCG TAB PO SCH (06:36)
[2018-09-26] MEDS: LISINOPRIL 5 MG TAB PO SCH (08:47)
[2018-09-26] MEDS: FAMOTIDINE 20 MG TAB PO SCH (08:48)
[2018-09-26] MEDS: TICAGRELOR 90 MG TAB PO SCH (08:48)
[2018-09-26] MEDS: ASPIRIN 81 MG PO SCH (08:48)
[2018-09-26] MEDS: METOPROLOL TARTRATE 25 MG TAB PO SCH (08:48)
[2018-09-26 08:50] VITALS: TEMP 98.1
--- NOTE | 2018-09-26 09:30 | PN ---
PROGRESS NOTE Mr. Goff is a 58-year-old male who presented with ST-segment elevation inferior wall underwent stenting of the right coronary artery. He is doing well this morning. He is denying any chest pain. His breathing has been stable. He denies any dizziness. He has been ambulating without any difficulty. He continued to be on aspirin 81 mg daily, Brilinta 90 mg twice a day, Lopressor 25 mg twice a day, Lipitor 80 mg daily, lisinopril 5 mg twice a day. PHYSICAL EXAMINATION: Blood pressure 113/69 with the heart rate in the 60s. LUNGS: Clear. HEART: Regular rate and rhythm. S1, S2. No S3. No rub. ABDOMEN: Soft, nontender. EXTREMITIES: No edema. His echocardiogram during this admission revealed an ejection fraction of 40% to 45%. IMPRESSION: 1. Status post inferior myocardial infarction and stenting of the right coronary artery. 2. History of hypertension. 3. Chronic tobacco use. RECOMMENDATION: Patient should be able to be discharged home today and followed as an outpatient. MMODL / ZINAN: [id number] /
[2018-09-26 12:27] VITALS: BP 107/64; PULSE 56
--- NOTE | 2018-09-26 12:36 | P.DS ---
Providers Date of admission: 09/23/18 10:12 Expected date of discharge: 09/26/18 Attending physician: Alejandro Hidalgo MD Consults: 09/23/18 10:12 Consult Physician Routine Consulting Provider: Claudia Dow Consult Reason/Comments: stemi Do you want consulting provider notified?: Already Contacted 09/23/18 10:20 Consult Physician Routine Consulting Provider: Christophe Chandler Consult Reason/Comments: Post Interventional patient Do you want consulting provider notified?: Already Contacted Primary care physician: Lisette Still Hospital Course: Discharge diagnosis - STEMI of the inferior wall status post stenting - History of hypertension - History of smoking Hospital course Very pleasant 58-year-old gentleman with a past medical history significant for high blood pressure and smoking was admitted for STEMI. He underwent cath and had stenting done to the RCA. He was started on Mylanta Lopressor Lipitor and lisinopril. He is already on aspirin as well. On 09/26/2018 Patient says that he is feeling fine, complete of no chest pain, racing heart, no cough, shortness of breath, no abdominal pain, no nausea and vomiting, or diarrhea consultation. On exam, alert and oriented x3. HEENT: Conjunctivae normal. eyes normal. NECK: No JVD. No thyroid enlargement. No LNs CARDIOVASCULAR: S1, S2 muffled. No murmur RESPIRATION: Breath sounds diminished in the bases. No rhonchi or crackles. No bronchial breathing. ABDOMEN: Soft, nontender . No guarding. no masses palpable. No ascites, No hepatosplenomegaly.Bowel sounds heard. LEGS: No edema. no swelling NERVOUS SYSTEM: Cranial N 2-12 grossly normal. Moves all 4 limbs. No focal deficits. No sensory deficit. No signs of cerebellar dysfucntion. Skin: no ulcer no rash Joints: No active swelling. No inflammation. Lymphatic system. No LN neck axilla or groin. He will does be discharged He will need to follow with cardiology at the date stated in the discharge summary He wanted to follow with PCP on the date stated in the discharge summary Procedures: Heart heart cath with stent placement in the RCA Patient Condition at Discharge: Critical Plan - Discharge Summary Discharge Rx Participant: No New Discharge Prescriptions: New Aspirin 81 mg PO DAILY chew Atorvastatin [Lipitor] 80 mg PO HS #90 tab Lisinopril [Zestril] 5 mg PO BID #180 tab Metoprolol Tartrate [Lopressor] 25 mg PO BID #180 tab Nitroglycerin Sl Tabs [Nitrostat] 0.4 mg SUBLINGUAL Q5M PRN #25 tab PRN Reason: Chest Pain Ticagrelor [Brilinta] 90 mg PO BID #180 tab Continue Levothyroxine Sodium [Synthroid] 200 mcg PO QAM Varenicline Tartrate [Chantix Continuing Pack] 2 mg PO HS Discontinued amLODIPine BESYLATE 10 mg PO QAM Discharge Medication List Levothyroxine Sodium [Synthroid] 200 mcg PO QAM 09/23/18 [History] Varenicline Tartrate [Chantix Continuing Pack] 2 mg PO HS 09/23/18 [History] Aspirin 81 mg PO DAILY chew 09/26/18 [Rx] Atorvastatin [Lipitor] 80 mg PO HS #90 tab 09/26/18 [Rx] Lisinopril [Zestril] 5 mg PO BID #180 tab 09/26/18 [Rx] Metoprolol Tartrate [Lopressor] 25 mg PO BID #180 tab 09/26/18 [Rx] Nitroglycerin Sl Tabs [Nitrostat] 0.4 mg SUBLINGUAL Q5M PRN #25 tab 09/26/18 [Rx ] Ticagrelor [Brilinta] 90 mg PO BID #180 tab 09/26/18 [Rx] Follow up Appointment(s)/Referral(s): Claudia Dow MD [STAFF PHYSICIAN] - 10/07/18 4:00 pm (Sunday) Cheko Knox MD [Primary Care Provider] - 10/02/18 9:30 am (Sunday) Patient Instructions/Handouts: Heart Healthy Diet (DC), Coronary Intravascular Stent Placement (DC) Activity/Diet/Wound Care/Special Instructions: Please call the PCP or call 911 right away if she started to have chest pains, racing heart, shortness of breath, lightheadedness or dizziness, any bleeding from anywhere, any dark colored stools. Discharge Disposition: HOME SELF-CARE
== END 2018-09-26 13:39 | disposition home or self-care (01) | DRG 247 ==
LOC: EC 08:40 → 2SICU 10:12 → 3SCARD 09-25 04:25
PROVIDERS: ADMIT Internal Medicine; ATTEND Internal Medicine
PROC: B2111ZZ Fluoroscopy of Multiple Coronary Arteries using Low Osmolar Contrast (ICD-10-PCS; 2018-09-23)
PROC: B2151ZZ Fluoroscopy of Left Heart using Low Osmolar Contrast (ICD-10-PCS; 2018-09-23)
PROC: 027035Z Dilation of Coronary Artery, One Artery with Two Drug-eluting Intraluminal Devices, Percutaneous Approach (ICD-10-PCS; principal; 2018-09-23 12:50)
PROC: 4A023N7 Measurement of Cardiac Sampling and Pressure, Left Heart, Percutaneous Approach (ICD-10-PCS; 2018-09-23 12:50)
DX: I21.19 ST elevation (STEMI) myocardial infarction involving other coronary artery of inferior wall (principal); I25.10 Atherosclerotic heart disease of native coronary artery without angina pectoris; E78.5 Hyperlipidemia, unspecified; I10 Essential (primary) hypertension; F17.210 Nicotine dependence, cigarettes, uncomplicated; R00.1 Bradycardia, unspecified; E66.9 Obesity, unspecified; E04.1 Nontoxic single thyroid nodule; E03.9 Hypothyroidism, unspecified; Z68.36 Body mass index [BMI] 36.0-36.9, adult; Z71.6 Tobacco abuse counseling; Z79.890 Hormone replacement therapy; Z79.899 Other long term (current) drug therapy; Z83.3 Family history of diabetes mellitus
CPT/HCPCS: 36415; 71045; 80048; 80053; 80061; 82550; 82553; 83735; 84100; 84484; 85025; 85347; 85610; 85730; 93005; 93306; 93458; 99285; C1874